=== PATIENT | male | born 1960 | race Caucasian/White ===

== ENCOUNTER 2019-01-28 07:58 | Outpatient (CLI) | payer OTHER | END 2019-01-28 08:06 | disposition home or self-care (01) | LOC: TOM 07:58 | DX: C61 Malignant neoplasm of prostate (principal) | CPT/HCPCS: 74178; Q9965 ==

== ENCOUNTER 2019-01-30 09:04 | Outpatient (CLI) | payer OTHER | END 2019-01-30 10:00 | disposition home or self-care (01) | LOC: NUCLEAR 09:04 | DX: C61 Malignant neoplasm of prostate (principal) | CPT/HCPCS: 78306; 78320; A9503 ==

== ENCOUNTER 2019-02-25 13:48 | Outpatient (CLI) | payer OTHER | END 2019-02-25 16:43 | disposition home or self-care (01) | LOC: LAB 13:48 | DX: C61 Malignant neoplasm of prostate (principal); Z51.81 Encounter for therapeutic drug level monitoring ==

== ENCOUNTER 2019-02-27 08:57 | Outpatient (CLI) | payer OTHER | END 2019-02-27 09:10 | disposition home or self-care (01) | LOC: MRI 08:57 | DX: C61 Malignant neoplasm of prostate (principal) | CPT/HCPCS: 72197; A9575 ==